=== PATIENT | male | born 1965 | race Caucasian/White ===

== ENCOUNTER 2018-12-04 00:52 | Emergency (ER) | payer OTHER ==
[~2018-12-04] VITALS: Ht 185.4 cm; Wt 75.3 kg
--- NOTE | ~2018-12-04 | EKG ---
[place], [place] ELECTROCARDIOGRAM REPORT NAME: MARCUS MOON UNIT #: [id number] ROOM: DOCTOR: EPIPHANY DRAFT REPORT BIRTHDATE: [birth year] [facility] Test Date: 2018-12-04 Test Time: 01:12:37 Pat Name: MARCUS MOON Department: ED Room: Gender: [employer] Teacher: Bruno Burnett : 1965 Requested By: YANI ARRIAGA Order Number: [id number] Reading MD: Saranya Jang MD Measurements Intervals [place] Rate: 59 P: 51 LA: 144 QRS: 21 QRSD: 90 T: 48 QT: 428 QTc: 424 Interpretive Statements Sinus rhythm Borderline low voltage, extremity leads Electronically Signed On 12-17-2018 7:28:28 PDT by Saranya Jang MD CM:EKGRPT:ELECTROCARDIOGRAM REPORT [id number] YANI SIN DRAFT REPORT YANI ARRIAGA DO
[~2018-12-04 00:52] MED LIST: AMOXICILLIN500 M2 PO; AUGMENTIN 875875 MG PO; COLACE100 MG PO; FLONASE ALLERG9.9 ML NAS; FLONASE ALLERG9.9 ML NS; HYDROCODONE BIT1 T11 PO; KEFLEX500 MG PO; MOTRIN800 MG PO; NORCO 5-325 TA1 EACH PO; PCE500 M1 PO; PENICILLIN-VK500 MG PO; PREDNICOT20 MG PO; PREDNISONE10 MG PO; PROCTOFOAM-HC 11 FOA R; ROBITUSSIN AC 110 ML PO; ZITHROMAX Z PA250 MG PO; ZOFRAN4 MG PO
[2018-12-04 01:15] LABS: BASO % 0.4 % (0.0-1.0); EOS # 0.1 10*3/uL (0.0-0.4); EOS % 1.1 % (1.0-4.0); HEMATOCRIT 49.5 % (42.0-52.0); HEMOGLOBIN 16.7 g/dl (14.0-18.0); LYMPH # 1.8 10*3/uL (1.3-4.4); MEAN CELL VOLUME 89.4 fl (80.0-94.0); MEAN CORPUSCULAR HGB 30.1 pg (27.0-31.0); MEAN CORPUSCULAR HGB CONC 33.7 g/dl (33.0-37.0); MEAN PLATELET VOLUME 9.7 fl (9.6-12.3); MONO # 0.5 10*3/uL (0.1-1.0); MONO % 6.4 % (3.0-9.0); NEUT # 4.7 10*3/uL (2.3-7.9); PLATELET COUNT AUTOMATED 186 10*3/uL (130-400); RED BLOOD COUNT 5.54 10*6/uL (4.50-5.90); RED CELL DISTRI WIDTH 12.7 % (0-14.5)
[2018-12-04 01:26] LABS: ACT PARTIAL THROMBO TIME 29.5 SECONDS (20.0-32.1)
[2018-12-04 01:31] LABS: ALBUMIN 4.3 gm/dl (3.1-4.5); ALKALINE PHOSPHATASE 92 U/L (45-117); BUN 7 mg/dl (7-24); CHLORIDE 102 mmol/L (98-107); CREATININE 0.95 mg/dL (0.70-1.30); POTASSIUM 3.7 mmol/L (3.5-5.1); SGOT/AST 10 IU/L (3-35); SGPT/ALT 19 U/L (12-78); SODIUM 136 mmol/L (136-145); TOTAL PROTEIN 7.3 gm/dL (6.4-8.2)
[2018-12-04 01:40] LABS: TROPONIN I < 0.015 ng/ml (<0.045)
== END 2018-12-04 01:51 | disposition home or self-care (01) ==
LOC: ED 00:52
PROVIDERS: Student in an Organized Health Care Education/Training Program
DX: K64.9 Unspecified hemorrhoids (principal); Z87.19 Personal history of other diseases of the digestive system

== ENCOUNTER → 2019-02-05 | Outpatient (CLI) | payer OTHER | END | disposition home or self-care (01) | LOC: CT 07:28 | DX: K57.30 Diverticulosis of large intestine without perforation or abscess without bleeding (principal); R19.7 Diarrhea, unspecified ==

== ENCOUNTER → 2019-03-15 | Outpatient (CLI) | payer OTHER | END | disposition home or self-care (01) | LOC: RAD 15:35 | DX: R63.4 Abnormal weight loss (principal); F17.200 Nicotine dependence, unspecified, uncomplicated ==

== ENCOUNTER → 2019-03-21 | Outpatient (CLI) | payer OTHER ==
[2019-03-21 08:23] LABS: CREATININE 0.97 mg/dL (0.70-1.30)
== END | disposition home or self-care (01) ==
LOC: CT 08:00 → LAB 08:00
PROVIDERS: Radiology Diagnostic Radiology
DX: Z12.11 Encounter for screening for malignant neoplasm of colon (principal); J44.9 Chronic obstructive pulmonary disease, unspecified; R11.0 Nausea; F17.200 Nicotine dependence, unspecified, uncomplicated; R63.4 Abnormal weight loss; M19.91 Primary osteoarthritis, unspecified site

== ENCOUNTER 2019-04-09 21:43 | Emergency (ER) | payer OTHER ==
[~2019-04-09] VITALS: Ht 185.4 cm; Wt 71.2 kg
[2019-04-09] MEDS ORDERED: AUGMENTIN 875875 MG PO (21:55)
== END 2019-04-09 22:20 | disposition home or self-care (01) ==
LOC: ED 21:43
DX: S51.851A Open bite of right forearm, initial encounter (principal); Z79.2 Long term (current) use of antibiotics; Z79.899 Other long term (current) drug therapy; W54.0XXA Bitten by dog, initial encounter; Y93.89 Activity, other specified; Y92.89 Other specified places as the place of occurrence of the external cause; Y99.8 Other external cause status

== ENCOUNTER → 2019-04-24 | Outpatient (CLI) | payer OTHER | END | disposition home or self-care (01) | LOC: US 12:42 | DX: E04.2 Nontoxic multinodular goiter (principal) ==

== ENCOUNTER → 2021-06-28 | Outpatient (CLI) | payer OTHER | END | disposition home or self-care (01) | LOC: US 06-14 10:00 | PROVIDERS: ATTEND Physician Assistant | DX: E04.2 Nontoxic multinodular goiter (principal) ==

== ENCOUNTER → 2021-08-12 | Outpatient (CLI) | payer OTHER | END | disposition home or self-care (01) | LOC: LAB 00:08 → CT 09:00 → LAB 09:00 | PROVIDERS: ATTEND Physician Assistant | DX: Z01.818 Encounter for other preprocedural examination (principal); J44.9 Chronic obstructive pulmonary disease, unspecified; C61 Malignant neoplasm of prostate; E04.2 Nontoxic multinodular goiter; M50.30 Other cervical disc degeneration, unspecified cervical region ==

== ENCOUNTER → 2021-08-30 | Outpatient (CLI) | payer OTHER | END | disposition home or self-care (01) | LOC: US 08-18 11:00 | PROVIDERS: ATTEND Physician Assistant | DX: E04.1 Nontoxic single thyroid nodule (principal); J44.9 Chronic obstructive pulmonary disease, unspecified; C61 Malignant neoplasm of prostate; F17.210 Nicotine dependence, cigarettes, uncomplicated ==

== ENCOUNTER 2022-12-09 15:14 | Emergency (ER) | payer SELFPAY ==
[~2022-12-09] VITALS: Ht 185.4 cm; Wt 74.8 kg
== END 2022-12-09 18:29 | disposition home or self-care (01) ==
LOC: ED 15:14
DX: U07.1 COVID-19 (principal); M10.9 Gout, unspecified

== ENCOUNTER 2024-05-26 22:29 | Emergency (ER) | payer OTHER ==
[~2024-05-26] VITALS: Ht 185.4 cm; Wt 74.8 kg
[2024-05-26] MEDS ORDERED: NYST SUSP PO (23:01)
== END 2024-05-26 23:07 | disposition home or self-care (01) ==
LOC: ED 22:29
DX: B37.0 Candidal stomatitis (principal); M10.9 Gout, unspecified; Z87.891 Personal history of nicotine dependence